=== PATIENT | male | born 1985 | race Caucasian/White ===

== ENCOUNTER → 2017-05-01 | Emergency (ER) | payer OTHER ==
[2017-05-01 17:40] VITALS: BP 130/99; PULSE 85; TEMP 98.1; BMI 34.9
== END | disposition left against medical advice (07) ==
LOC: JERFT 17:33
DX: Z53.21 Procedure and treatment not carried out due to patient leaving prior to being seen by health care provider (principal)
CPT/HCPCS: 99281-25